=== PATIENT | female | born 1940 | race Two or more races ===

== ENCOUNTER → 2016-11-08 | Outpatient (CLI) | payer MEDICARE, BC ==
[~2016-11-08] MED LIST: 3N1 COMMODE MC; AMLO5TAB4 PO; Acetaminophen PO; BEN25 PO; BROVANA NEB; Budesonide HHN; CALC200T3 PO; CLON-379 PO; DILT180C75 PO; DILT240C63 PO; DOCU-144 PO; DULO60CA6 PO; DULR PR; EXEM25TA3 PO; FAMO-95 GTB; GUAI-47 PO; HYDR-3498 PO; IPRA12.93 INH; NA P133E3 PR; PANT40TA4 PO; PRED10TA PO; PROP225T PO; Triamcinolone Acet MM; VALA500T32 PO; WALK1EAC23 MC
--- NOTE | 2016-11-08 15:39 | RADRPT ---
PROCEDURE: XR left knee. CLINICAL INDICATION: Knee pain TECHNIQUE: AP weightbearing, PA weightbearing, lateral weightbearing and sunrise views are availab le for review. 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 There is mild osteoarthrosis involving the medial tibial femoral compartment, lateral tibial femoral compartment a nd patellofemoral compartment. This is associated with osteophytosis. The osseous structures are otherwise normal in mineralization, architecture and alignment. No fract ures are identified. No osseous lesions are identified. The soft tissues are unremarkable. 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 Mild osteoarthrosis involving the medial tibial femoral compartment, lateral tibial femoral compartm ent and patellofemoral compartment. RPTAT: [facility] .Shaun Rodriguez MD, MD Date Time Electronically viewed and signed by .Shaun Rodriguez MD, on 11/08/2016 15:38 .B/
--- NOTE | 2016-11-08 15:40 | RADRPT ---
PROCEDURE: XR right knee. CLINICAL INDICATION: Knee pain. TECHNIQUE: AP weightbearing, lateral weightbearing and sunrise views are available for review. COMPARISON: 02/09/2016 FINDINGS: There is a total knee replacement. There is no evidence of loosening of the prosthesis. The osseous structures are normal in mineralization, architecture and alignment No acute fracture or dislocation is seen.No osseous lesions are identified. The soft tissues are unremarkable . IMPRESSION: Unremarkable total knee replacement. RPTAT: [facility] .Shaun Rodriguez MD, Date Time Electronically viewed and signed by .Shaun Rodriguez MD, on 11/08/2016 15:40 .B/
== END | disposition home or self-care (01) ==
LOC: HKI 14:27
PROVIDERS: ATTEND Orthopaedic Surgery
DX: Z47.1 Aftercare following joint replacement surgery (principal); M17.12 Unilateral primary osteoarthritis, left knee; M25.562 Pain in left knee; Z96.651 Presence of right artificial knee joint; Z96.643 Presence of artificial hip joint, bilateral
CPT/HCPCS: 73562; 73564; G0463